=== PATIENT | female | born 1995 | race Caucasian/White ===

== ENCOUNTER 2021-12-13 11:54 | Outpatient (CLI) | payer OTHER, SELFPAY ==
[2021-12-13 12:30] VITALS: BP 106/72; PULSE 110; RESP 18; TEMP 36.7; O2SAT 96; BMI 34.4
[2021-12-13 13:20] VITALS: BP 101/72; PULSE 74; RESP 16; TEMP 36.6; O2SAT 99
[2021-12-13 15:39] VITALS: BP 123/78; PULSE 94; RESP 16; TEMP 36.6; O2SAT 99
== END 2021-12-13 11:55 | disposition home or self-care (01) ==
LOC: OPS 11:57
PROVIDERS: Visit Provider Nurse Practitioner Family
DX: U07.1 COVID-19 (principal)
CPT/HCPCS: 96365